=== PATIENT | male | born 1940 | race Caucasian/White ===

== ENCOUNTER 2019-03-31 08:40 | Day surgery (SDC) | payer MEDICARE, BC ==
[~2019-03-31 08:40] MED LIST: CEFAZOLIN 2 Gram 2 GM/50 ML BAG IVPB ONE; FAMOTIDINE 20MG TABLET PO ONE; MECLIZINE 25 MG TABLET PO ONE; METOCLOPRAMIDE 10 MG TABLET PO ONE
[2019-03-31] MEDS ORDERED: MIDAZOLAM HCL 2MG/2ML VIAL IV ONE (08:41)
[2019-03-31] MEDS ORDERED: DEXAMETHASONE 4 MG/ML 1ML VIAL IVP ONE (08:41)
[2019-03-31] MEDS ORDERED: EPHEDRINE SULFATE 50 MG/ML ML IV ONE (08:41)
[2019-03-31] MEDS ORDERED: LIDOCAINE 2% MDV (20MG/ML) 20ML VIAL IV ONE (08:41)
[2019-03-31] MEDS ORDERED: ROPIVACAINE HCL (NAROPIN) /PF 5MG/ML 20ML VIAL IV ONE (08:41)
[2019-03-31] MEDS ORDERED: PROPOFOL 10 MG/ML VIAL IV ONE (08:41)
[2019-03-31] MEDS ORDERED: RINGERS SOLUTION,LACTATED 1,000 ML IV ONE ×3 (09:20→12:18)
[2019-03-31] MEDS ORDERED: TRANEXAMIC ACID 1,000 MG/10 ML ML IVPB ONE (11:49)
[2019-03-31] MEDS ORDERED: ZOLPIDEM TARTRATE 5 MG TABLET PO PRN (13:00)
[2019-03-31] MEDS ORDERED: ONDANSETRON HCL IV 4 MG/2 ML VIAL IVP PRN (13:00)
[2019-03-31] MEDS ORDERED: AL HYDROX/MAG HYDROX 30ML UD PO PRN (13:00)
[2019-03-31] MEDS ORDERED: HYDROMORPHONE HCL 2 MG/ML VIAL IV PRN (13:00)
[2019-03-31] MEDS ORDERED: HYDROCODONE/APAP 5/325MG TABLET PO PRN (13:00)
[2019-03-31] MEDS ORDERED: METOCLOPRAMIDE HCL 10 MG/2 ML VIAL IVP PRN (13:00)
[2019-03-31] MEDS ORDERED: SENNOSIDES/DOCUSATE SODIUM UD CAPSULE PO PRN (13:00)
[2019-03-31] MEDS ORDERED: ACETAMINOPHEN 325 MG TAB PO PRN (13:00)
[2019-03-31] MEDS ORDERED: MAGNESIUM HYDROXIDE 30 ML UDC PO PRN (13:00)
[2019-03-31] MEDS ORDERED: DIPHENHYDRAMINE HCL 25 MG CAPSULE PO PRN (13:00)
[2019-03-31] MEDS ORDERED: NALOXONE 0.4 MG/1 ML VIAL IVP PRN (13:00)
[2019-03-31] MEDS ORDERED: OXYCODONE HCL/APAP 5MG/325MG TABLET PO PRN ×2 (13:00)
[2019-03-31] MEDS ORDERED: MELATONIN 5 MG TABLET PO PRN (13:18)
--- NOTE | 2019-03-31 13:41 | Operative Note ---
DATE OF SURGERY; 03/31/2019 SURGEON: Esvin Espinoza D.O. REFERRING PHYSICIAN: Herman Sims D.O. PREOPERATIVE DIAGNOSIS: OSTEOARTHRITIS OF THE RIGHT KNEE. POSTOPERATIVE DIAGNOSIS: OSTEOARTHRITIS OF THE RIGHT KNEE. OPERATION: RIGHT TOTAL KNEE ARTHROPLASTY. DESCRIPTION: This 78-year-old male was taken to the Operating Room and placed in the supine position on the operating room table. A spinal anesthetic was administered and the right lower extremity was elevated. It was prepped with Hibiclens and draped in the usual sterile fashion. It was exsanguinated and the tourniquet was inflated to 250 mmHg. All scrub personnel wore personal isolation suits. An anterior longitudinal midline incision was made followed by a medial parapatellar arthrotomy incision. An intercondylar drill hole was made for the intramedullary alignment lottie and a 6 degree valgus 9 mm cut was made in the distal femur and the wafers of bone were removed. The size jig was affixed and size 70 was seen to be the appropriate size. The 4-in-1 cutting block then was pinned in 3 degrees of external rotation, the appropriate cuts were made, and the wafers of bone were removed. We then directed our attention to the proximal tibia and an extramedullary alignment guide was used to cut the proximal tibia referencing a 10 mm cut off the lateral tibial plateau, we subsequently had to cut an additional 2 mm because of bone loss medially and we did not get below subchondral bone with the initial cut therefore an additional 2 mm was cut. Once the wafer of bone was removed, remnants of the menisci and osteophytes were removed from the posterior aspect of the joint, a size 79 baseplate was seen to be the appropriate size and the stem punch was used. All trial components were inserted and a 12 mm bearing was seen to be the appropriate size which gave us full extension, full flexion with no instability of the knee being identified. The patella was cut and restored to anatomic height with a 37 x 8.6 mm patella and no instability of the patella was identified. All trial components were then removed and the wound copiously irrigated with pulse lavage lactated Ringer's solution. All of the bony surfaces were dried, excess cement was removed at the insertion of each component, all of the debris had been removed from the knee including all osteophytes and remnants of the menisci. All bony surfaces were dried and the components were cemented. Initially the tibial baseplate was cemented followed by an insertion of the tibial bearing, femoral component and finally the patella. Once the cement had hardened, the knee was again taken through range of motion and found to be stable. The wound was irrigated with lactated Ringer's solution after the cement had hardened and a drain was placed through a separate stab incision. The arthrotomy incision was closed with #2 Vicryl, the subcutaneous tissue was closed with 0 Vicryl, and the skin was stapled. Sterile dressings were applied. The tourniquet was released and the patient was taken to the Recovery Room in satisfactory condition. GROSS PATHOLOGY: This patient demonstrated advanced medial and patellofemoral osteoarthritis with the lateral compartment being relatively spared with only Grade 2 changes identified. There was severe full thickness medial compartment changes. FINAL COMPONENTS INSERTED: [employer] size 70 cruciate retaining femur, size 79 tibia, 12 mm anterior stabilized E1 bearing and a 37 x 8.6 mm patella was used. JOB NUMBER: [id number] MTDD
--- NOTE | 2019-03-31 15:43 | Rehab Evaluation ---
Patient Information - Patient Information Diagnosis: Right TKA secondary to OA Ordered Treatment: PT Evaluate and Treat Status: Initial Evaluation Surgery: Yes (RTKA) Date of Surgery: 03/31/19 History: Detail (Retired 78 Y/O male hospitalized for TKA-right) Past Medical/Surgical Hx: PAST MEDICAL/SURGICAL HISTORY Past Surgical History KNEE SCOPE LTKA 2018 TOE AMPUTATION EYE SX BILAT CATARACTS C SCOPES HEART CATH MANY YEARS AGO PMH - Respiratory Hx Respiratory Disorders Yes Hx Sleep Apnea Yes Hx of CPAP Yes: INSTRUCTED TO BRING PMH - Cardiovascular Hx Cardiovascular Disorders Yes Hx Abnormal EKG Yes: "EXTRA BEAT" Hx Cardiac Catheterization Yes: MANY YEARS AGO Hx Hypertension Yes: CONTROLLED WITH MEDS Exercise Tolerance Fair PMH - Neuro Hx Neurological Disorders Yes Hx Dizziness Yes: HX VERTIGO MANY YEARS AGO Hx Neuropathy Yes Comment: MILD MEMORY LOSS. BALANCE SLIGHTLY OFF PMH - GI Hx Gastrointestinal Disorders No PMH - Hx Genitourinary Disorders No PMH - Endocrine Hx Endocrine Disorders Yes Hx Diabetes Yes: WAS TOLD HES "BOARDERLINE" NO MEDS A1C 2018 5.7 PMH - Musculoskeletal Hx Musculoskeletal Disorders Yes Hx Arthritis Yes: RIGHT KNEE POSSIBLY HANDS PMH - Psych Hx Psychiatric Problems Yes Hx Anxiety Yes Hx Depression Yes: MILD PMH - Hematology/Oncology Hx Hematology/Oncology No Disorders Premorbid Status: Detail (Pain and debility due to degenerative changes) Social History: Detail (retired,lives alone.) Precautions: [place], Fall, Other (joint replacement, right TKA.) - Time With Patient Total Time Spent With Patient (Min): 30 Treatment Procedures: Detail (Quick assessment of pts leg control which was good. Left leg ROM and Strength good. Right ankle stiff but able to do pumps and circles, right knee flexing and extending well from 0 degrees to 65 degrees. Patient able to do independent SLR and transfer out of bed and back in without assist. Performed all beginning exercises without difficulty.Pt also marched in place 4 steps bilaterally using 2ww, before transfer back to bed. Pt left in bed, head elevated with intermittent compression wraps on bilateral calfs and ice neymar pack wraped on knee machines pluged-in.Nurse call in reach, friend at bedside.) Subjective Information - Subjective Information Per Patient (Pt reports doing well. pain mild.) Objective Data - Pain Pain Present: Yes (mild) Pain Intensity: 3 Pain Scale Used: Numeric (1 - 10) - Mental Status Patient Orientation: Oriented x3 - Visual Perception Appears within normal limits for therapeutic activities - ROM Within normal limits, Other (right knee ROM limited secondary to RTKA.) - Strength/Tone Within normal limits, Other (Right lower extremety not tested, except to determine if pt had motor control.) - Coordination Appears within normal limits for therapeutic activities, Deficit (WNLs except right knee secondary to surgery.) - Bed Mobility Independent - Transfers Independent, Needs Assist (using 2ww for transfers) - Balance Balance Sitting: Good Balance Standing: Good (balance is good with 2ww.) - Sensation Intact (sensation intact except gluteal area decreased from spinal epidural.) - Gait Detail (Pt walked in place with 2ww no complaints.) - ADL's/IADL's Detail (n/a) - Special Tests No (n/a) Patient Education - Patient Education Teaching Topic: Equipment Use, Exercise/Activity, Precautions Response: Return Demonstration, Reinforcement Needed (some reinforcement needed for correct form for transfer back into bed.), Verbalize Understanding Teaching Method: Discussion, Demonstration Teaching Recipient: Patient Barriers To Learning: None Problem List - Problem List Physical Therapy Problem List: Detail (Pt has not completed demonstration of all functional areas to determine he is ready to be D/Cd from PT.) Goals - Goals Physical Therapy Goals: Independent with use of HEP. Independent with transfers in and out of bed and chairs. Independent with ambulation level surfaces household distance, and @ least 3-4 steps with use of 2ww and rail, or human assist if rail not available. Prognosis - Prognosis Good Plan - Plan Physical Therapy Plan: 1-2 more visits PO day 1 to complete all education to allow patient to be D/Cd to [facility] x 2-3 days then home safely.
[2019-03-31] MEDS: HYDROCODONE/APAP 5/325MG TABLET PO PRN ×2 (15:50→21:25)
[2019-03-31] MEDS: CITALOPRAM 20 MG PO SCH (16:39)
[2019-03-31] MEDS: RINGERS SOLUTION,LACTATED 1,000 ML IV SCH (16:39)
[2019-03-31] MEDS: CEFAZOLIN 2 Gram 2 GM/50 ML BAG IVPB SCH (18:47)
[2019-03-31] MEDS: ASPIRIN 325 MG TAB ENTERIC-COATED PO SCH (21:15)
[2019-03-31] MEDS ORDERED: AMLODIPINE 5MG PO SCH (22:00)
[2019-03-31] MEDS ORDERED: HCTZ PO SCH (22:00)
[2019-03-31] MEDS ORDERED: LOSARTAN PO SCH (22:00)
[2019-04-01] MEDS: CEFAZOLIN 2 Gram 2 GM/50 ML BAG IVPB SCH ×2 (02:45→10:53)
[2019-04-01] MEDS: ASPIRIN 325 MG TAB ENTERIC-COATED PO SCH (09:33)
[2019-04-01] MEDS: RINGERS SOLUTION,LACTATED 1,000 ML IV SCH (09:34)
[2019-04-01] MEDS: CITALOPRAM 20 MG PO SCH (09:34)
--- NOTE | 2019-04-01 09:37 | Physical Therapy Tx Note ---
Physical Therapy Tx Note - Treatment Note Tolerated: Good Total Time Spent With Patient: 30 Physical Therapy Tx Note: Detail (The patient was in bed when PT arrived. The patient was independent with supine to sit and ambulated with front wheeled walker 7.5 feet x 1 WBAT on R LE to the bathroom independently. The patient was independent with toilet transfers. The patient ambulated with front wheeled walker a distance of 120 feet x 1 WBAT on the R LE independently with occasional verbal cues to push front wheeled walker instead of lifting it. The patient ambulated on 3 steps with use of cane and railing using proper technique with supervision for safety. Proper tub and car transfer techniques were reviewed as well as how to ambulate on stairs without railings as he has at home. The patient's TKA HEP was reviewed including: SLR, seated heel slides, ankle pumps , quad sets, hamstring sets,gluteal sets. The patient has met all inpt. PT goals and is discharged from inpt. PT.) Physical Therapy Problem List: Detail (Pt has not completed demonstration of all functional areas to determine he is ready to be D/Cd from PT.) Physical Therapy Goals: GOALS MET: Independent with use of HEP. Independent with transfers in and out of bed and chairs. Independent with ambulation level surfaces household distance, and @ least 3-4 steps with use of 2ww and rail, or human assist if rail not available. Physical Therapy Plan: The patient is discharged from inpt. PT and is to continue with Home PT.
[2019-04-01] MEDS: HYDROCODONE/APAP 5/325MG TABLET PO PRN (11:05)
--- NOTE | 2019-04-01 12:52 | Discharge Summary ---
DATE OF ADMISSION: 03/31/2019 DATE OF DISCHARGE: 04/01/2019 ADMITTING DIAGNOSIS: OSTEOARTHRITIS OF THE RIGHT KNEE. DISCHARGE DIAGNOSIS: OSTEOARTHRITIS OF THE RIGHT KNEE. OPERATIVE PROCEDURE: ELECTIVE RIGHT TOTAL KNEE ARTHROPLASTY. DESCRIPTION: This 78-year-old male was admitted to the hospital for total knee arthroplasty. He tolerated the operative procedure well. His pain was controlled with [place] and antiinflammatory medications. The patient was cleared by physical therapy. He did complain of some calf discomfort, I have examined this prior to discharge, he has no swelling, no pinpoint tenderness. He simply felt that the compression stockings were too tight so he pulled them down and the pain was gone. The patient will take aspiring 325 mg daily for four weeks. He was given a prescription for Motrin 800 mg #40 one every eight hours prn and a prescription for Percocet (because he preferred Percocet over [place]) 5/325 mg #40 one every six hours as necessary for pain. Routine wound care instructions were given. He will follow-up in the office in two weeks. Should he have any problems prior to being seen he was instructed to call my office. JOB NUMBER: [id number] [facility]
--- NOTE | 2019-04-01 13:11 | Rehab Evaluation ---
Patient Information - Patient Information Diagnosis: Right TKA secondary to OA Ordered Treatment: OT Evaluate and Treat Status: Initial Evaluation Surgery: Yes (RTKA) Date of Surgery: 03/31/19 History: Detail (Retired 78 Y/O male hospitalized for TKA-right, previous L TKA.) Past Medical/Surgical Hx: PAST MEDICAL/SURGICAL HISTORY Past Surgical History KNEE SCOPE LTKA 2017 TOE AMPUTATION EYE SX BILAT CATARACTS C SCOPES HEART CATH MANY YEARS AGO PMH - Respiratory Hx Respiratory Disorders Yes Hx Sleep Apnea Yes Hx of CPAP Yes: INSTRUCTED TO BRING PMH - Cardiovascular Hx Cardiovascular Disorders Yes Hx Abnormal EKG Yes: "EXTRA BEAT" Hx Cardiac Catheterization Yes: MANY YEARS AGO Hx Hypertension Yes: CONTROLLED WITH MEDS Exercise Tolerance Fair PMH - Neuro Hx Neurological Disorders Yes Hx Dizziness Yes: HX VERTIGO MANY YEARS AGO Hx Neuropathy Yes Comment: MILD MEMORY LOSS. BALANCE SLIGHTLY OFF PMH - GI Hx Gastrointestinal Disorders No PMH - Hx Genitourinary Disorders No PMH - Endocrine Hx Endocrine Disorders Yes Hx Diabetes Yes: WAS TOLD HES "BOARDERLINE" NO MEDS A1C 2018 5.7 PMH - Musculoskeletal Hx Musculoskeletal Disorders Yes Hx Arthritis Yes: RIGHT KNEE POSSIBLY HANDS PMH - Psych Hx Psychiatric Problems Yes Hx Anxiety Yes Hx Depression Yes: MILD PMH - Hematology/Oncology Hx Hematology/Oncology No Disorders Premorbid Status: Detail (Pain and debility due to degenerative changes. Prior to admit, Pt was independent w/ all I/ADLs and fxl mobility.) Social History: Detail (Pt is retired and lives alone. He plans to DC to his daughters home, where there are 7 steps at the entrance, and the bathroom is equipped with a tub/shower. He has a FWW. Recommended is a shower chair, a shower grab bar, and a toilet riser, which therapist educated Pt on where to obtain and place items for increased safety.) Precautions: [place], Fall, Other (joint replacement, right TKA, WBAT on the R.) - Time With Patient Total Time Spent With Patient (Min): 20 (1 OT eval: low complexity) Subjective Information - Subjective Information Per Patient (Pt supine upon therapist arrival, in pain as he just sat down and had forgotten to kick his R leg out prior to sitting.) Objective Data - Pain Pain Present: Yes (10 R knee) - Mental Status Patient Orientation: Oriented x3 - Visual Perception Appears within normal limits for therapeutic activities - ROM Within normal limits (B UEs) - Strength/Tone Within normal limits (B UEs) - Coordination Appears within normal limits for therapeutic activities - Bed Mobility Independent - Transfers Independent (supine >< EOB) - Balance Balance Sitting: Good Balance Standing: Fair - Sensation Intact - Gait Detail (Fxl mobility side stepping and minimal steps FW and BW w/ FWW. Pt refuses further ambulation. OT educated on safe FWW use.) - ADL's/IADL's Detail (Following education, Pt doffs/dons underwear and pants at EOB w/ supervision for standing pant mgmt. Assist to don/doff socks, Pt reports daughter will help w/ socks if needed at home, but often wears slip on shoes. OT educ. Pt on modified techs for kitchen and bathroom tasks, Pt verbalizes understanding of safety.) - Special Tests No Therapy Assessment - Therapy Assessment Detail (Pt demos safety and modified independence w/ ADLs and fxl mobility and Pt reports his daughter will assist as needed at DC. Pt appears safe for home DC when medically ready.) Patient Education - Patient Education Teaching Topic: Equipment Use, Other (AE for LB dress if needed) Response: Return Demonstration, Verbalize Understanding Teaching Method: Discussion, Demonstration Teaching Recipient: Patient Barriers To Learning: None Problem List - Problem List Physical Therapy Problem List: Detail (Pt has not completed demonstration of all functional areas to determine he is ready to be D/Cd from PT.) Occupational Therapy Problem List: Detail (No further IP OT needs identified.) Goals - Goals Physical Therapy Goals: GOALS MET: Independent with use of HEP. Independent with transfers in and out of bed and chairs. Independent with ambulation level surfaces household distance, and @ least 3-4 steps with use of 2ww and rail, or human assist if rail not available. Occupational Therapy Goals: No further IP OT needs/goals identified. Prognosis - Prognosis Good Plan - Plan Physical Therapy Plan: The patient is discharged from inpt. PT and is to continue with Home PT. Occupational Therapy Plan: No further IP OT needs/goals identified. DC OT services. Thank you for this referral.
== END 2019-04-01 14:30 | disposition home health service (06) ==
LOC: SUR 08:40 → MEDSURG 13:02 → SUR 04-01 14:30
PROVIDERS: ATTEND Orthopaedic Surgery
DX: M17.11 Unilateral primary osteoarthritis, right knee (principal); I10 Essential (primary) hypertension; G62.9 Polyneuropathy, unspecified; R41.3 Other amnesia; G47.33 Obstructive sleep apnea (adult) (pediatric); F17.210 Nicotine dependence, cigarettes, uncomplicated
CPT/HCPCS: 36416; 76942; 82948; C1776; J7120